=== PATIENT | male | born 1945 | race Caucasian/White ===

== ENCOUNTER 2018-03-14 14:03 | Observation (INO) | payer MEDICARE, OTHER ==
[~2018-03-14] VITALS: Ht 172.7 cm; Wt 113.4 kg
[~2018-03-14 14:03] MED LIST: ATENOLOL50 MG PO; LISINOPRIL10 MG PO; XARELTO20 MG PO
[2018-03-14] MEDS ORDERED: FUROSEMIDE40 MG PO (14:24)
[2018-03-14] MEDS ORDERED: POTASSIUM CHLO20 ME1 PO (14:24)
[2018-03-14] MEDS ORDERED: ATORVASTATIN CA20 MG PO (14:24)
[2018-03-14] MEDS ORDERED: ELIQUIS PO (14:24)
[2018-03-14] MEDS ORDERED: ASPIR 8181 MG PO (14:24)
[2018-03-14] MEDS ORDERED: ASPIRIN 81 MG CHEW TAB PO ONE ×2 (14:30→16:45)
[2018-03-14 14:49] LABS: BASOPHILS # (AUTO) 0.1 (0.0-0.1); BASOPHILS % 0.4 % (0.0-1.0); EOSINOPHILS % 0.2 % (0.0-6.0); HEMATOCRIT 44.4 % (38.2-49.6); HEMOGLOBIN 15.3 g/dL (14.0-18.0); LYMPHOCYTES # (AUTO) 1.4 (1.0-3.2); LYMPHOCYTES % 10.2 % (18.0-39.1); MEAN CORPUSCULAR HEMOGLOBIN 31.7 pg (28-32); MEAN CORPUSCULAR HGB CONC 34.5 g/dL (31-35); MEAN CORPUSCULAR VOLUME 91.9 fL (81-99); MONOCYTES # (AUTO) 1.4 (0.2-0.8); MONOCYTES % 10.2 % (4.4-11.3); NEUTROPHILS # (AUTO) 10.8 (2.1-6.9); NEUTROPHILS % 78.7 % (38.7-80.0); PLATELET COUNT 195 x10e3/uL (140-360); RED BLOOD COUNT 4.83 x10e6/uL (4.3-5.7); RED CELL DISTRIBUTION WIDTH 12.3 % (11.7-14.4)
--- NOTE | 2018-03-14 14:52 | Diagnostic Imaging Report ---
EXAM: XR CHEST 1 VIEW DATE: 03/14/2018 2:22 PM INDICATION: Lightheaded COMPARISON: None FINDINGS: Lines and Tubes: None Heart and Mediastinum: No acute cardiomediastinal findings. Lungs and Pleura: Minimal opacities in the lung bases statistically represent atelectasis, however, infectious process could have a similar appearance. Bones and Soft Tissues: No acute findings. IMPRESSION: 1. Probable atelectasis. Signed by: Dr. Binh Nathan MD on 03/14/2018 2:48 PM
[2018-03-14 14:58] LABS: INR 1.4; PARTIAL THROMBOPLASTIN TIME 33.7 seconds (23.8-35.5); PROTHROMBIN TIME 16.1 seconds (11.9-14.5)
[2018-03-14 15:08] LABS: ALBUMIN 3.6 g/dL (3.5-5.0); ALBUMIN/GLOBULIN RATIO 1.1 (0.8-2.0); CALCIUM 9.2 mg/dL (8.4-10.2); CREATININE, SERUM 1.33 mg/dL (0.72-1.25); MAGNESIUM 1.8 MG/DL (1.3-2.1)
--- NOTE | 2018-03-14 15:22 | Diagnostic Imaging Report ---
Exam: Head CT without contrast History: Dizziness Comparison studies: None Technique: Axial images were obtained from the skull base to the vertex. Coronal and sagittal images reconstructed from the axial data. Radiation dose: Total DLP: 921 mGy*cm. Estimated effective dose: DLP x 0.015 Intravenous contrast: None Findings: Scalp: No abnormalities. Bones: No fractures, blastic or lytic lesions. Brain sulci: Appropriate for age. Ventricles: Normal in size and configuration. No hydrocephalus. Extra-axial spaces: No masses, no fluid collection. Parenchyma: No mass, acute hemorrhage or acute or chronic cortical vascular insults. A few scattered hypodensities in the supratentorial white matter are nonspecific but most compatible with chronic microvascular ischemic changes. Sellar/suprasellar region: No abnormalities. Craniocervical junction: Patent foramen magnum. No Chiari one malformation. Incidental findings: Atherosclerotic calcifications in the carotid siphons. IMPRESSION: 1. No acute intracranial abnormalities. 2. Mild chronic microvascular ischemic changes. Signed by: Dr. Ortiz Christensen M.D. on 03/14/2018 3:19 PM
[2018-03-14 15:28] LABS: CREATINE KINASE MB 1.2 ng/mL (0-5.0); THYROID STIMULATING HORMONE 0.468 uIU/mL (0.350-4.940)
[2018-03-14 15:55] LABS: BILIRUBIN,URINE NEGATIVE (NEGATIVE); CLARITY,URINE CLEAR (CLEAR); COLOR,URINE YELLOW (YELLOW); KETONES,URINE NEGATIVE (NEGATIVE); LEUKOCYTE ESTERASE ,URINE NEGATIVE (NEGATIVE); NITRITE,URINE NEGATIVE (NEGATIVE); PROTEIN,URINE DIPSTICK NEGATIVE (NEGATIVE); URINE UROBILINOGEN 0.2 mg/dL (0.2 - 1)
[2018-03-14 16:06] LABS: BACTERIA,URINE RARE /HPF; EPITHELIAL CELLS,URINE RARE /LPF; RBC,URINE 0-5 /HPF (0-5); WBC,URINE (MAN) 0-5 /HPF (0-5)
[2018-03-14 16:07] LABS: MUCUS,URINE MODERATE (RARE); TRANSITIONAL EPI CELLS,URINE RARE
[2018-03-14] MEDS ORDERED: SODIUM CHLORIDE 0.9% 1000ML 1,000 ML IV STA (16:24)
[2018-03-14] MEDS ORDERED: SODIUM CHLORIDE 0.9% 1000ML 1,000 ML IV SCH (16:31)
[2018-03-14] MEDS ORDERED: DIATRIZOATE MEGL/DIATRIZOA SOD 30 ML BTL PO ONE (16:39)
[2018-03-14] MEDS ORDERED: ONDANSETRON HCL INJ 2 MG/ML VIAL IV PRN (16:45)
[2018-03-14] MEDS ORDERED: SODIUM CHLORIDE 0.9% 50ML 0 ML ONE (17:48)
[2018-03-14] MEDS ORDERED: IOPAMIDOL 370 MG/ML 200 ML INFUS..BTL INJ ONE ×2 (17:48→20:13)
--- NOTE | 2018-03-14 18:28 | Diagnostic Imaging Report ---
ADDENDUM #1 Addendum: Indeterminate right adrenal lesion. Nonemergent outpatient adrenal protocol CT or MRI recommended. Signed by: Dr. Binh Nathan MD on 03/14/2018 6:29 PM ORIGINAL REPORT EXAM: CT Abdomen and Pelvis WITH contrast INDICATION: COMPARISON: None. TECHNIQUE: Abdomen and Pelvis was scanned utilizing a multidetector helical scanner after administration of IV contrast. Coronal and sagittal reformations were obtained. IV CONTRAST: 100 mL Isovue-370 contrast COMPLICATIONS: None RADIATION DOSE: Total DLP:891 mGy*cm Estimated effective dose: (DLP x 0.015 x size factor) mSv CTDIvol has been reviewed. It is below the limits set by the Radiation Protocol Committee (RPC). FINDINGS: Abdomen: Lung Bases: Atelectasis. Solid Organs: Small indeterminate right adrenal nodule with Hounsfield units 49. Simple cyst left kidney. Hypodensity spleen likely cyst. Otherwise, solid organs unremarkable. Upper GI Tract: Gastric decompression limits evaluation. Duodenal diverticulum noted. No small bowel obstructive changes. Vascularity: Mild aortic vascular calcifications with no aneurysm. Lymph Nodes: No suspicious adenopathy. Other: None. Pelvis: Bladder: Unremarkable. Other: None Colon: Colonic diverticulosis present most notably sigmoid colon and rectum with moderate stranding about the rectum, particularly on the left. There is a moderate sized diverticulum arising from the left aspect of the rectum. No distinct drainable fluid collection identified. Bones: Degenerative changes. IMPRESSION: 1. Moderate diverticulosis distal sigmoid colon/rectum. Signed by: Dr. Binh Nathan MD on 03/14/2018 6:25 PM
[2018-03-14 19:19] VITALS: BP 100/78
[2018-03-14] MEDS ORDERED: SODIUM CHLORIDE 0.9% 50ML 50 ML ONE (20:13)
[2018-03-15] MEDS ORDERED: LEVOFLOXACIN 750MG/D5W 150ML 150 ML IV SCH (09:00)
== END 2018-03-14 19:54 | disposition left against medical advice (07) ==
LOC: ER 14:03 → ERHOLD 16:34 → UNDOADMOB 16:39 → ERHOLD 16:39
PROVIDERS: ADMIT Internal Medicine; ATTEND Internal Medicine
DX: J18.9 Pneumonia, unspecified organism (principal); I95.9 Hypotension, unspecified; R53.1 Weakness; I10 Essential (primary) hypertension; R19.7 Diarrhea, unspecified; I48.91 Unspecified atrial fibrillation; E78.5 Hyperlipidemia, unspecified; Z86.718 Personal history of other venous thrombosis and embolism
CPT/HCPCS: 36415; 70450; 71045; 74177; 80053; 81001; 82550; 82553; 83735; 83880; 84443; 84484; 85025; 85610; 85730; 87086; 93005; 99284; G0378; J2405; J7030; Q9967

== ENCOUNTER 2018-11-26 10:56 | Observation (INO) | payer MEDICARE, OTHER ==
[2018-11-23 10:31] LABS: BASOPHILS % 0.5 % (0.0-1.0); EOSINOPHILS # (AUTO) 0.2 (0.0-0.4); HEMATOCRIT 45.4 % (38.2-49.6); HEMOGLOBIN 15.8 g/dL (14.0-18.0); LYMPHOCYTES # (AUTO) 2.1 (1.0-3.2); LYMPHOCYTES % 28.8 % (18.0-39.1); MEAN CORPUSCULAR HEMOGLOBIN 31.9 pg (28-32); MEAN CORPUSCULAR HGB CONC 34.8 g/dL (31-35); MEAN CORPUSCULAR VOLUME 91.5 fL (81-99); MONOCYTES # (AUTO) 0.9 (0.2-0.8); MONOCYTES % 11.7 % (4.4-11.3); NEUTROPHILS # (AUTO) 4.1 (2.1-6.9); NEUTROPHILS % 56.7 % (38.7-80.0); PLATELET COUNT 196 x10e3/uL (140-360); RED BLOOD COUNT 4.96 x10e6/uL (4.3-5.7)
[2018-11-23 10:54] LABS: ALBUMIN 3.9 g/dL (3.5-5.0); ALBUMIN/GLOBULIN RATIO 1.2 (0.8-2.0); ANION GAP 11.2 mmol/L (8-16); CALCIUM 9.7 mg/dL (8.4-10.2); CREATININE, SERUM 1.3 mg/dL (0.72-1.25); POTASSIUM 4.2 mmol/L (3.5-5.1)
[2018-11-26] VITALS (16 sets, daily range): BP systolic 118–177; BP diastolic 42–102
[~2018-11-26] VITALS: Ht 175.3 cm; Wt 115.7 kg
[~2018-11-26 10:56] MED LIST changes: +ASPIR 8181 MG PO; +ATORVASTATIN CA20 MG PO; +CLOPIDOGREL75 MG PO; +ELIQUIS PO; +FUROSEMIDE40 MG PO; +POTASSIUM CHLO20 ME1 PO
[2018-11-26] MEDS ORDERED: DIPHENHYDRAMINE HCL 25 MG CAP ONE (11:15)
[2018-11-26] MEDS ORDERED: ALPRAZOLAM 0.5 MG TAB ONE (11:15)
--- NOTE | 2018-11-26 11:39 | NUR ---
Patient ambulated to ACU bay 20. Patient awake,alert,and orientedx3. Respirations even and unlabored on room air. Patient prepped in usual fashion for peripheral angiogram, Pedal pulses marked bilaterally. Left pedal access area prepped in usual fashion.
[2018-11-26] MEDS ORDERED: MIDAZOLAM HCL 2 MG/2 ML VIAL ONE ×2 (11:57→13:09)
[2018-11-26] MEDS ORDERED: HEPARIN SOD (PORCINE) 1000 UNIT/ML 30ML ONE (11:57)
[2018-11-26] MEDS ORDERED: LIDOCAINE HCL 2% LOCAL 20 ML VIAL ONE (11:57)
[2018-11-26] MEDS ORDERED: FENTANYL CITRATE/PF 100MCG/2 ML INJ ONE (11:57)
[2018-11-26] MEDS ORDERED: IOPAMIDOL 300MG/ML 100 ML INFUS..BTL IV ONE (11:58)
[2018-11-26] MEDS ORDERED: SODIUM CHLORIDE 0.9% 1000ML 1,000 ML ONE ×4 (11:58→18:43)
[2018-11-26] MEDS ORDERED: HEPARIN SOD/SOD CHLORIDE 2,000 ML ONE (11:58)
[2018-11-26] MEDS ORDERED: HEPARIN SOD/SOD CHLORIDE 1,000 ML ONE (13:15)
[2018-11-26] MEDS ORDERED: VERAPAMIL HCL 2.5 MG/ML 2 ML VIAL ONE (13:19)
[2018-11-26] MEDS ORDERED: NITROGLYCERIN/D5W 200 MCG/ML 250 ML ONE (13:20)
--- NOTE | 2018-11-26 13:50 | NUR ---
1350 Received pt in room #9 Identifierx2 Report form Arnaud Leach Peripheral CSI fix wiht balloon. Left has 6fr and right has 7fr sheath in place. No gross signs pain,pallor,pressure or dysrhythmia.Iv infusing well at 75cchr w/o s/s infiltration. via dial a flow.To infuse full liter.Back to baseline orientation. Resp regular 100% sat on room air.Abdomen soft and non tender Denies necessity to defecate or urinate. Bilateral pulses present weak Pd/Dp.Left foot discoloration present however, pt has history as well as atrial fib asymptomatic.Bed ordered (Tele Obsv.) and High School Math Tutor notified.Liliana LEACH. Discharge plans for return December 03 for procedure at [facility] and copies of POC. No gross sign of pain or pressure. ACT due at 1420pm. Denies CP or SOB. kyle/marcel
--- NOTE | 2018-11-26 16:20 | NUR ---
1620pm Act 176 kelly in one hour for sheath pull No gross issues pain pallor pressure or dysrhythmia. ds/rn
[2018-11-26] MEDS ORDERED: MORPHINE SULFATE INJ 4 MG/ML INJ 1ML ONE (16:32)
--- NOTE | 2018-11-26 16:45 | NUR ---
1645 c/o low back pain remains flat for extended period time.Medicated 4mg ivp MOrphine slowly with adequate pain relief to lower back area Family at bedside Remains NPO till sheath pull,No gross issues with pain pallor or pressure. ds/rn
--- NOTE | 2018-11-26 17:20 | NUR ---
17[address] Brar received one time order for muscle relaxant ,unable to give till sheath pull x2 completed Monitor remains atrial fib. No gross issues pain pallor or pressure. In formed senior cytotechnologist sheath ready to be removed. Obtained Atropine for standby at bedside. kyle/marcel
--- NOTE | 2018-11-26 17:36 | NUR ---
1736 sonography technologist Cecilio at bedside Vs stable with atrial fib. NO gross signs of pain,pallor,pressure or dythrhtmia. Catheter pulled and pressure applied per laborer aquatic life Cecilio Technologist. Pt states "going out" Bolused 200NS,Hr 33, Atropine 0.5 ivp via left NS line. Pt Hr continues to drop to 27 Additional 0.5 Atropine Ivp Rapid called and ED DR DR Garcia arrived. O2 per NC at 4lnc Pt regained consciousness.Dr Gonzalez rd lab technician examined pt. House Supv. Liliana at bedside and rapid response team left bedside.Notified Dr Brar per text and phone and was made aware of event Stasis to Rt groin achieved in 30min,18:05pm. 1840pm José sonography technologist at bedside Atropine on standby 2nd sheath to left groin pulled and stasis achieve at 1930 Bilateral Brinda patches in place. Pulses present at bedside and no gross issues with pain pallor pressure or dysthrthmia however baseline rthym remains in atrial fib.Denies any ill feelings,CP or SOb.Iv clamped and site dry and intact with 900cc NS in bag. Phone floor to give report ds/rn
[2018-11-26] MEDS ORDERED: ATROPINE SULFATE 0.1 MG/ML 10ML SYR ONE ×2 (17:41→18:41)
[2018-11-26] MEDS ORDERED: METHOCARBAMOL 750 MG TAB PO ONE (17:45)
--- NOTE | 2018-11-26 20:00 | NUR ---
2000 Pt with no gross sign pain pallor pressure Both sheath removed Flat till 6am Left iv clamped and patent 1 liter infused. Bilateral Brinda Patch dressing intact. Triston femoral pulses present with slight mottle to left leg.Dp/PD Rt 2+/2+ left 1+/1+ Chronic. Needs further fx to leg in one week Discharge home car paper filled out and copies given to and placed on chart. Pt received Morphine 4mg iv at 1645pm, 200NS and 1mg Atropine with vagal response and during 1st sheath pull. Robaxin 750 po at 2000pm pt tolerating h20 intake. Report to BDDY Rn aware pt to be flat till 6am. Vs and ekg stable at this time.Transfer per stretcher zolmali and Rn escort. ds/rn
[2018-11-26] MEDS ORDERED: MORPHINE SULFATE 2 MG/ML SYR 1ML IV PRN (22:15)
[2018-11-27] VITALS: BP 112/67
[2018-11-27 00:07] VITALS: BP 120/88
[2018-11-27] MEDS ORDERED: MORPHINE SULFATE INJ 4 MG/ML INJ 1ML IV PRN (02:48)
[2018-11-27 04:00] VITALS: BP 122/72
[2018-11-27 06:42] LABS: BASOPHILS % 0.5 % (0.0-1.0); EOSINOPHILS # (AUTO) 0.1 (0.0-0.4); EOSINOPHILS % 0.8 % (0.0-6.0); HEMATOCRIT 42.5 % (38.2-49.6); HEMOGLOBIN 14.1 g/dL (14.0-18.0); LYMPHOCYTES # (AUTO) 1.7 (1.0-3.2); LYMPHOCYTES % 23.4 % (18.0-39.1); MEAN CORPUSCULAR HEMOGLOBIN 31.3 pg (28-32); MEAN CORPUSCULAR HGB CONC 33.2 g/dL (31-35); MEAN CORPUSCULAR VOLUME 94.2 fL (81-99); MONOCYTES # (AUTO) 0.7 (0.2-0.8); MONOCYTES % 9.8 % (4.4-11.3); NEUTROPHILS # (AUTO) 4.9 (2.1-6.9); NEUTROPHILS % 65.1 % (38.7-80.0); PLATELET COUNT 141 x10e3/uL (140-360); RED BLOOD COUNT 4.51 x10e6/uL (4.3-5.7); RED CELL DISTRIBUTION WIDTH 13.2 % (11.7-14.4)
--- NOTE | 2018-11-27 06:50 | NUR ---
rounded with shift foreman, patient aware of change and in no distress. groin sites bandages in tact and sites are soft. moderate amount of drainage to left groin, but nurse states there has been no change in the site since the patient was received. call zavala within reach and bed in lowest position
[2018-11-27 06:55] LABS: ANION GAP 11.2 mmol/L (8-16); CALCIUM 8.9 mg/dL (8.4-10.2); CARBON DIOXIDE 23 mmol/L (22-29); CHLORIDE 109 mmol/L (98-107); CREATININE, SERUM 1.04 mg/dL (0.72-1.25); EST GLOMERULAR FILTRATION RATE > 60 ML/MIN (60-); GLUCOSE 99 mg/dL (74-118); POTASSIUM 4.2 mmol/L (3.5-5.1); SODIUM 139 mmol/L (136-145)
[2018-11-27 07:20] VITALS: BP 138/82
[2018-11-27 07:23] LABS: BLOOD UREA NITROGEN 18 mg/dL (7-26); BUN/CREATININE RATIO 17 (6-25)
[2018-11-27 07:53] VITALS: BP 104/54
[2018-11-27 07:56] VITALS: BP 138/82
--- NOTE | 2018-11-27 08:50 | NUR ---
CASE MANAGEMENT INITIAL ASSESSMENT Logistics Lead to bedside to discuss plan of care with patient/family. CM/SW role and care transitions discussed. Anticipated discharge plan discussed along with duration of care. CM/SW discussed patients right to make decisions in care. CM/SW work hours given. Patient lives: WITH Admit/Transfer: SCHEDULED PROCEDURE Hospital/ER visits since last admit:YES POA/Emergency contact: KOJO [phone] Current/Previous Home Health: NONE PCP/Follow-up Care: DR ALLRED; CARDIOLOGY IS DR. KANDI MOREIRA Current/Previous DME: NO Medications (referring to index hospitalization or the first time you were in the hospital) a. Were changes made in your medications when you were in the hospital on [date of index hospitalization]? Yes XNo Not sure Explain: Note: If no or not sure, please skip to question d b. Did you understand the changes? Yes No Explain: c. Were you able to obtain your new medications right away? Yes No n/a SNF only Explain: d. Were you able to take your medications like the doctor wanted you to? X Yes No Explain: e. Did the hospital give you an accurate, easy to understand list of medications when you left? X Yes No n/a SNF only Explain: Scale of 1-10 how comfortable does patient feel with disease management in outpatient setting: Other Services: NONE Employment Status: RETIRED Areas of Concerns: NONE Referral Needs: NONE Education Needs:EDUCATED ON BURGER LETTER IMM/BURGER given and signed (if applicable): BURGER Goal for discharge:TO RETURN HOME CM/SW left business card at the bedside with contact information. Name and number was also written on the patients whiteboard. Patient verbalized understanding of discussion. CM will follow-up with ongoing discharge and transition of care needs.
[2018-11-27] MEDS ORDERED: FUROSEMIDE 40 MG TAB PO SCH (09:00)
[2018-11-27] MEDS ORDERED: LISINOPRIL 10 MG TAB PO SCH (09:00)
[2018-11-27] MEDS ORDERED: ATENOLOL 50 MG TAB PO SCH (09:00)
[2018-11-27] MEDS ORDERED: ASPIRIN 81 MG CHEW TAB PO SCH (09:00)
--- NOTE | 2018-11-27 09:40 | NUR ---
patient alert and oriented. discharge instructions given to patient and , both verbalized understanding. IV discontinued, catheter in tact and small dressing applied. patient to be wheeled from the unit to personal auto for to drive home.
[2018-11-27] MEDS ORDERED: ATORVASTATIN 20 MG TAB PO SCH (21:00)
[2018-11-27] MEDS ORDERED: CLOPIDOGREL BISULFATE 75 MG TAB PO SCH (21:00)
--- NOTE | 2018-11-28 01:49 | Operative Report ---
DATE OF PROCEDURE: 11/26/2018 SURGEON: Sudeep Brar MD PROCEDURE: Cardiac optical laboratory mechanic procedure. INDICATIONS: Peripheral arterial disease, claudication of the left lower extremity. PROCEDURES PERFORMED: 1. Abdominal aorta catheter placement, abdominal aortogram, / catheter placement from the right femoral artery to the left superficial femoral artery. 2. Antegrade access into the left femoral artery with atherectomy and balloon angioplasty of the left popliteal anterior tibial arteries. COMPLICATIONS: None. RECOMMENDATIONS: Intervention of the right anterior tibial artery and the right pedal access. DESCRIPTION OF PROCEDURE: Access was obtained in the right femoral artery. Abdominal aortogram demonstrates minimal disease of the abdominal aorta. Iliac bifurcations were almost vertical on the inability to cross from the right to the left side. Antegrade access obtained. The left leg stent was widely patent, however, anterior tibial artery had 99% stenosis. Tibioperoneal trunk and popliteal artery 90% stenosis. The popliteal artery is completely occluded posterior tibial artery is completely occluded collaterals from the peroneal artery. A decision was made to intervene on the both popliteal and peroneal artery. The patient received intravenous heparin. The lesion was crossed using a Glidewire. Orbital atherectomy was performed of the popliteal artery as well as the peroneal artery. Large amounts of visible thrombus with manual aspiration thrombectomy was needed. Drug coated balloon angioplasty of the popliteal and peroneal artery performed with a 4 mm balloon. Excellent left foot. No complication. Sheath was secured in place, removed under manual pressure. The patient was observed in the hospital overnight. Sudeep Brar MD KSB/MODL /[id number]
== END 2018-11-27 09:42 | disposition home or self-care (01) ==
LOC: CATH LAB 10:56 → CATH LAB V 16:54 → IMCU 20:15
PROVIDERS: ADMIT Internal Medicine Interventional Cardiology; ATTEND Internal Medicine Interventional Cardiology
DX: I73.9 Peripheral vascular disease, unspecified (principal); Z01.812 Encounter for preprocedural laboratory examination; I10 Essential (primary) hypertension; I48.1 Persistent atrial fibrillation; I72.4 Aneurysm of artery of lower extremity; Z79.899 Other long term (current) drug therapy; I82.493 Acute embolism and thrombosis of other specified deep vein of lower extremity, bilateral; T82.868D Thrombosis due to vascular prosthetic devices, implants and grafts, subsequent encounter
CPT/HCPCS: 36415 ×2; 37186; 37225; 37229; 75625; 75710; 80048; 80053; 85025 ×2; C1724; C1725; C1766 ×2; C1769 ×3; C1887; G0378 ×2; J1644; J2001; J2250; J2270 ×2; J7030; Q9967; 36247

== ENCOUNTER → 2018-12-03 | Day surgery (SDC) | payer MEDICARE, OTHER ==
[2018-12-01 11:31] LABS: BASOPHILS # (AUTO) 0.1 (0.0-0.1); BASOPHILS % 0.8 % (0.0-1.0); EOSINOPHILS # (AUTO) 0.2 (0.0-0.4); EOSINOPHILS % 3.2 % (0.0-6.0); HEMOGLOBIN 14.3 g/dL (14.0-18.0); LYMPHOCYTES # (AUTO) 1.6 (1.0-3.2); LYMPHOCYTES % 25.2 % (18.0-39.1); MEAN CORPUSCULAR HEMOGLOBIN 31.6 pg (28-32); MEAN CORPUSCULAR VOLUME 92.7 fL (81-99); MONOCYTES # (AUTO) 0.8 (0.2-0.8); MONOCYTES % 13.6 % (4.4-11.3); NEUTROPHILS # (AUTO) 3.5 (2.1-6.9); NEUTROPHILS % 56.7 % (38.7-80.0); PLATELET COUNT 164 x10e3/uL (140-360); RED BLOOD COUNT 4.53 x10e6/uL (4.3-5.7); RED CELL DISTRIBUTION WIDTH 12.7 % (11.7-14.4)
[2018-12-01 11:46] LABS: ALBUMIN 3.8 g/dL (3.5-5.0); ALBUMIN/GLOBULIN RATIO 1.2 (0.8-2.0); ANION GAP 10.8 mmol/L (8-16); CALCIUM 9.8 mg/dL (8.4-10.2); CREATININE, SERUM 1.23 mg/dL (0.72-1.25); POTASSIUM 4.8 mmol/L (3.5-5.1)
[~2018-12-03] VITALS: Ht 175.3 cm; Wt 115.7 kg
[2018-12-03] VITALS (14 sets, daily range): BP systolic 96–132; BP diastolic 57–90
[~2018-12-03] MED LIST changes: +ALPRAZOLAM 0.5 MG TAB ONE; +DIPHENHYDRAMINE HCL 25 MG CAP ONE; +FENTANYL CITRATE/PF 100MCG/2 ML INJ ONE; +HEPARIN SOD/SOD CHLORIDE 2,000 ML ONE; +IOPAMIDOL 300MG/ML 100 ML INFUS..BTL IV ONE; +LIDOCAINE HCL 2% LOCAL 20 ML VIAL ONE; +MIDAZOLAM HCL 2 MG/2 ML VIAL ONE; +SODIUM CHLORIDE 0.9% 1000ML 1,000 ML ONE; +VERAPAMIL HCL 2.5 MG/ML 2 ML VIAL ONE
--- NOTE | 2018-12-03 18:30 | NUR ---
1830 Received pt to laborer operator rec RM # [address] Brar. Report Arnaud GARCIA. TR band approach. 13cc in balloon left foot. Back to baseline orientation. Family at bedside. Reviewed f/o care and PC and copies of dc papers with family. Respirations regular. 98% sat on room air. Abdomen soft and non tender Denies necessity to defecate Iv infusing well w/o s/s infiltration at 100cchr. Tr band titration ok to start at 1900pm.Bilateral ppx4 with doppler. Dp/PT. Tolerating po intake. Will dc when Tr band removed. No gross issues pain, pallor,pressure,or dysrhythmia. 1900 -2cc from Tr Band ,no oozing or hematoma,toes blanching, less 3seconds, positive 10cc tr band 1915 -2cc form Tr Band ,no oozing or hematoma ,toes blanching ,less 3seconds, positive 8cc tr band 1930 -2cc from Tr Band ,no oozing or hematoma,toes blanching,less 3seconds ,positive 6cc tr band 1945-2cc form Tr band ,no oozing or hematoma.toes blanching,less 3seconds,positive 3cc hold ooze return 3cc positive 6cc 2014 resume TR band titration. -2cc slight ooze return air to balloon,positive 6cc ,toes blanching less 3second 2044 resume Tr band titration,no oozing or hematoma, toes manpreet well positive 4cc in balloon 2100 -2cc Tr band titration,no oozing or hematoma,toes manpreet well positive 2cc in balloon 2115 -2cc Tr band titration completed no gross signs of pain pallor,pressure or dysrhythmia. left foot with sterile 2x2 Tegaderm and Coban .Post procedural teaching completed with family and pt understanding assist with dressing. Tolerated po intake and discharged with RN escort to car per w/c family auto transport driver Family has copies of dc instructions. stable vs denies c/o CP or SOB. Ekg stable, ds/rn
--- NOTE | 2018-12-03 21:30 | NUR ---
2130 Tr titration to left with Coban dressing and sterile 2x2 with Tegaderm. Assist with dressing Able to tolerate po intake Back to baseline orientation Dc home with family test car driver and per Rn escort to car. Has copies of DC papers aware of importance of f/o care. No gross signs of pain,pallor,pressure or Dysrhythmia. ds/rn
--- NOTE | 2018-12-03 23:10 | Operative Report ---
DATE OF PROCEDURE: 12/03/2018 SURGEON: Sudeep Brar MD INDICATIONS: Peripheral arterial disease, claudication, critical limb ischemia of the left lower extremity. PROCEDURES PERFORMED: 1. Third order catheter placement in unilateral left leg angiogram. 2. Atherectomy and drug-coated balloon angioplasty of the left anterior tibial artery. 3. Secondary thrombectomy of the left popliteal artery. 4. Atherectomy and angioplasty of left popliteal artery. COMPLICATIONS: None. RECOMMENDATIONS: Triple anticoagulant therapy for life. DESCRIPTION OF PROCEDURE: Access obtained in the right lead in the left dorsalis pedis artery using ultrasound guidance. A 5-Tamazight sheath was placed. The patient received 10,000 units of intravenous heparin for anticoagulation. 90% stenosis of the proximal left anterior tibial artery, 80% stenosis in the distal left popliteal artery was noted. The intervention was deemed necessary. The lesion was crossed using a Glidewire, which was exchanged to a Viper wire. Orbital atherectomy thrombus necessitating aspiration, manual thrombectomy, atherectomy of the left popliteal artery is also performed. Angioplasty of the left anterior tibial artery with a 4 mm balloon, angioplasty of left popliteal artery. A 5 mm drug-coated balloon was performed. Excellent end result with two vessel runoff to the left foot. No complications. The left foot sheath was removed. TR bands were applied. The patient was observed in the hospital, subsequently discharged home same day with instructions for followup. Sudeep Brar MD KSB/MODL /[id number]
== END | disposition home or self-care (01) ==
LOC: CATH LAB 13:53
PROVIDERS: ATTEND Internal Medicine Interventional Cardiology
DX: I73.9 Peripheral vascular disease, unspecified (principal); Z01.812 Encounter for preprocedural laboratory examination; I48.91 Unspecified atrial fibrillation; I10 Essential (primary) hypertension; E29.1 Testicular hypofunction; Z82.49 Family history of ischemic heart disease and other diseases of the circulatory system; I72.4 Aneurysm of artery of lower extremity; Z79.899 Other long term (current) drug therapy; I48.1 Persistent atrial fibrillation; T82.868D Thrombosis due to vascular prosthetic devices, implants and grafts, subsequent encounter; I82.493 Acute embolism and thrombosis of other specified deep vein of lower extremity, bilateral
CPT/HCPCS: 36415; 37186; 37225; 37229; 75625; 75710; 80053; 85025; C1724; C1725 ×2; C1769 ×3; C1887; J2001; J2250; J7030; Q9967; 36247; 37224

== ENCOUNTER → 2018-12-28 | Outpatient (CLI) | payer MEDICARE, OTHER ==
[~2018-12-28] MED LIST changes: -ALPRAZOLAM 0.5 MG TAB ONE; -DIPHENHYDRAMINE HCL 25 MG CAP ONE; -FENTANYL CITRATE/PF 100MCG/2 ML INJ ONE; -HEPARIN SOD/SOD CHLORIDE 2,000 ML ONE; -IOPAMIDOL 300MG/ML 100 ML INFUS..BTL IV ONE; +IOPAMIDOL 370 MG/ML 200 ML INFUS..BTL INJ ONE; -LIDOCAINE HCL 2% LOCAL 20 ML VIAL ONE; -MIDAZOLAM HCL 2 MG/2 ML VIAL ONE; +SODIUM CHLORIDE 0.9% 100 ML 100 ML ONE; -SODIUM CHLORIDE 0.9% 1000ML 1,000 ML ONE; +SODIUM CHLORIDE 0.9% 50ML 0 ML ONE; -VERAPAMIL HCL 2.5 MG/ML 2 ML VIAL ONE
[2018-12-28 12:13] LABS: ANION GAP 12.4 mmol/L (8-16); BLOOD UREA NITROGEN 17 mg/dL (7-26); BUN/CREATININE RATIO 15 (6-25); CALCIUM 9.3 mg/dL (8.4-10.2); CARBON DIOXIDE 22 mmol/L (22-29); CHLORIDE 109 mmol/L (98-107); CREATININE, SERUM 1.16 mg/dL (0.72-1.25); EST GLOMERULAR FILTRATION RATE > 60 ML/MIN (60-); GLUCOSE 101 mg/dL (74-118); POTASSIUM 4.4 mmol/L (3.5-5.1); SODIUM 139 mmol/L (136-145)
--- NOTE | 2018-12-28 13:52 | Diagnostic Imaging Report ---
EXAMINATION: CT angiography of the abdomen, pelvis, and lower extremities TECHNIQUE: Spiral CT images of the abdomen and pelvis and lower extremities were performed from the lung bases to the lesser trochanters after the intravenous administration of 100 cc Isovue-370. Coronal and sagittal reformatted images were obtained. For optimization of anatomic definition, volume rendered 3-D reconstructions were generated on a stand-alone workstation under the direct supervision of the interpreting physician. COMPARISON: CT abdomen and pelvis with contrast 03/14/2018, images from left lower extremity angiogram and intervention CLINICAL HISTORY:Abdominal aortic aneurysm, popliteal aneurysm, right leg pain DISCUSSION: ABDOMEN/PELVIS: Vasculature: The abdominal aorta is nonaneurysmal. Celiac axis, SMA, single bilateral renal artery, and ROB origins are widely patent. Mild calcified and noncalcified atherosclerotic plaque. The iliac arteries are tortuous but otherwise widely patent, without significant inflow stenosis. Femoral-popliteal segments: Left: The common femoral artery is widely patent. Femoral bifurcation is widely patent. Profunda femoris artery and muscular branches are patent. Superficial femoral artery is patent. Patent stent graft excludes a fusiform aneurysm of the left popliteal artery which measures 2.9 cm in maximum diameter. No definite evidence of endoleak, though no precontrast examination was performed. Right: The common femoral artery is patent. Femoral bifurcation is patent. Profunda femoris artery and proximal muscular branches are patent. Superficial femoral artery is patent. Popliteal artery is patent, though markedly tortuous, with a peripherally thrombosed fusiform aneurysm of the above knee popliteal artery, measuring 3.7 cm in greatest dimension (series 6 image 27). The below-knee popliteal artery is patent. Runoff: Left: The anterior tibial artery is patent proximally and is visualized to its continuation as the dorsalis pedis artery. An early take off from the popliteal artery at the level of the knee joint is noted. The tibioperoneal trunk is patent. The peroneal artery is patent to its termination at the ankle joint. The posterior tibial artery occludes at its mid segment, with reconstitution at the level of the ankle. Right: The anterior tibial artery is patent. Early takeoff from the popliteal artery at the level of the knee joint. The anterior tibial artery is visualized to its continuation as the dorsalis pedis artery. The tibioperoneal trunk is patent. The peroneal artery is visualized to its termination at the ankle joint. The posterior tibial artery is visualized to its continuation as the lateral plantar artery. LOWER THORAX:Unremarkable. HEPATOBILIARY: No focal hepatic lesions. No intra-or extrahepatic biliary ductal dilation. Gallbladder has been removed. SPLEEN: Subcentimeter hypoattenuating splenic lesion, unchanged. PANCREAS: No focal masses or ductal dilatation. ADRENALS: Unchanged indeterminate right adrenal nodule. KIDNEYS/URETERS: Exophytic left lower pole renal cyst, unchanged. No hydronephrosis or calculi. PELVIC ORGANS/BLADDER: Urinary bladder is incompletely distended but otherwise unremarkable. PERITONEUM/RETROPERITONEUM: No free air or fluid. LYMPH NODES: No pelvic sidewall, retroperitoneal, or mesenteric lymphadenopathy. VESSELS: As above. GI TRACT: Innumerable sigmoid diverticula without wall thickening or inflammation. Stomach is collapsed with prominence of the rugal folds. Normal appendix. No small bowel dilatation to suggest obstruction. BONES AND SOFT TISSUE: No bony destructive lesions. Intramuscular lipoma anterior compartment right thigh. Otherwise no focal soft tissue abnormalities. IMPRESSION: No abdominal aortic aneurysm. 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 No significant iliac inflow or femoral-popliteal stenoses. Two-vessel runoff to the left foot supplied by the anterior tibial and peroneal arteries. Three-vessel runoff to the right foot. Incidental bilateral high takeoff of the anterior tibial arteries. Nonvascular findings include large bowel diverticulosis without findings of diverticulitis, and an indeterminate right adrenal nodule for which definitive characterization by CT or MRI of the abdomen with and without contrast (adrenal mass protocol) is again suggested. Signed by: Dr. Ortiz Biswas M.D. on 12/28/2018 1:49 PM
== END ==
LOC: CT 10:38
PROVIDERS: ATTEND Internal Medicine Interventional Cardiology
DX: I71.4 Abdominal aortic aneurysm, without rupture (principal); M79.604 Pain in right leg; K57.30 Diverticulosis of large intestine without perforation or abscess without bleeding
CPT/HCPCS: 36415; 75635; 80048; Q9967

== ENCOUNTER → 2019-07-08 | Day surgery (SDC) | payer MEDICARE, OTHER ==
[2019-07-06 14:38] LABS: BASOPHILS # (AUTO) 0.1 (0.0-0.1); BASOPHILS % 0.9 % (0.0-1.0); EOSINOPHILS # (AUTO) 0.2 (0.0-0.4); EOSINOPHILS % 2.7 % (0.0-6.0); HEMATOCRIT 46.6 % (38.2-49.6); HEMOGLOBIN 15.8 g/dL (14.0-18.0); LYMPHOCYTES # (AUTO) 1.7 (1.0-3.2); LYMPHOCYTES % 29.7 % (18.0-39.1); MEAN CORPUSCULAR HEMOGLOBIN 31.2 pg (28-32); MEAN CORPUSCULAR HGB CONC 33.9 g/dL (31-35); MEAN CORPUSCULAR VOLUME 92.1 fL (81-99); MONOCYTES # (AUTO) 0.8 (0.2-0.8); MONOCYTES % 12.8 % (4.4-11.3); NEUTROPHILS # (AUTO) 3.1 (2.1-6.9); NEUTROPHILS % 53.7 % (38.7-80.0); PLATELET COUNT 180 x10e3/uL (140-360); RED BLOOD COUNT 5.06 x10e6/uL (4.3-5.7); RED CELL DISTRIBUTION WIDTH 12.6 % (11.7-14.4)
[2019-07-06 14:54] LABS: ALBUMIN 3.8 g/dL (3.5-5.0); ALBUMIN/GLOBULIN RATIO 1.4 (0.8-2.0); ANION GAP 14.3 mmol/L (8-16); CALCIUM 9.1 mg/dL (8.4-10.2); CREATININE, SERUM 1.45 mg/dL (0.72-1.25); POTASSIUM 4.3 mmol/L (3.5-5.1)
[2019-07-08] VITALS (10 sets, daily range): BP systolic 88–132; BP diastolic 56–105
[~2019-07-08] VITALS: Ht 172.7 cm; Wt 117.9 kg
[~2019-07-08] MED LIST changes: +ALPRAZOLAM 0.5 MG TAB ONE; +DIPHENHYDRAMINE HCL 25 MG CAP ONE; +ELIQUIS5 MG PO; +FENTANYL CITRATE/PF 100MCG/2 ML INJ ONE; +HEPARIN SOD (PORCINE) 1000 UNIT/ML 30ML ONE; +HEPARIN SOD/SOD CHLORIDE 2,000 ML ONE; +IOPAMIDOL 300MG/ML 100 ML INFUS..BTL IV ONE; -IOPAMIDOL 370 MG/ML 200 ML INFUS..BTL INJ ONE; +LIDOCAINE HCL 2% LOCAL 20 ML VIAL ONE; +MIDAZOLAM HCL 2 MG/2 ML VIAL ONE; +NITROGLYCERIN/D5W 200 MCG/ML 250 ML ONE; -SODIUM CHLORIDE 0.9% 100 ML 100 ML ONE; +SODIUM CHLORIDE 0.9% 1000ML 1,000 ML ONE; +SODIUM CHLORIDE 0.9% 500ML 500 ML ONE; -SODIUM CHLORIDE 0.9% 50ML 0 ML ONE; +VERAPAMIL HCL 2.5 MG/ML 2 ML VIAL ONE
--- NOTE | 2019-07-08 08:45 | NUR ---
0845t in Rm#9, completed procedure.Fix Dr Brar Alert oriented and appropriate, PERRLA, respirations even and unlabored to room air. Pulses x4 extremities equal and faint. Pedal pulses PT/DP rt Pt/DP present Left Dp/PT 1+ palpable. Cap fill brisk < 3 sec. bilateral feet warm to touch Ok to decrease TR band at 1100am and dc home Pt stable vs in atrial fib. Skin warm and dry integrity appears intact in general. IV 100cchr Ns via left hand,presents healthy w/o s/s of infiltration or complaint. Abdomen soft and supple. pt offered toileting, denies need to urinate or defecate. Personal affects with patient. Family at bedside. Pt and family verbalizes understanding of POC, bed low and locked, side rails up x2 and call light at side. ds/rn
--- NOTE | 2019-07-08 11:00 | NUR ---
1100 left foot Compression removal: Initial Cuff volume 10 cc 1100 -5cc Removed No hematoma/bleeding noted with normal neurovascular function. 1115 -5cc Removed No hematoma/ bleeding noted with normal neurovascular function. Air removal completed. Stasis achieved sterile 2x2,Tegaderm, Coban dressing No hematoma, bleeding noted with normal neurovascular function. RADIAL Compression removal: Initial Cuff volume 15 cc 1100 -5cc Removed No hematoma/bleeding noted with normal neurovascular function. 1115 -5cc Removed No hematoma/ bleeding noted with normal neurovascular function. 1130 -5cc Removed No hematoma/bleeding noted with normal neurovascular function. cc Removed No hematoma/ bleeding noted with normal neurovascular function. Air removal completed. Stasis achieved sterile 2x2,Tegaderm, Coban dressing No hematoma, bleeding noted with normal neurovascular function. Wrist splint in place. Pt instructed on POC. Ds/Rn
--- NOTE | 2019-07-08 11:45 | NUR ---
1145a Pt meets DC criteria.Left Pedal and Rt radial sites assessed for s/s of complication and presecence of hematoma. Skin warm, dry, no discolor, and pulses present. IV removed from let arm. Distal tip appears intact. VS WNL. Pt denies pain, sob, or need at this time. Family at bedside. Review of discharge paperwork and follow up instructions. verbalized understanding. Pt to wheelchair and transported to front of hospital. Transferred to private vehicle under own strength w/o incident with DC paperwork in hand.ds/rn
--- NOTE | 2019-07-09 19:39 | Operative Report ---
DATE OF PROCEDURE: 07/08/2019 SURGEON: Sudeep Brar MD INDICATIONS: Peripheral arterial disease, critical limb ischemia of the left lower extremity. PROCEDURES PERFORMED: 1. Selective catheter placement from the right radial artery to the left femoral artery with unilateral extremity angiogram. 2. Additional third-order catheter placement from the right radial artery to the left anterior tibial artery. 3. Primary thrombectomy using Angiojet of the left anterior tibial artery. 4. Balloon angioplasty of the left anterior tibial artery. 5. Ultrasound-guided access into the right dorsalis pedis artery. COMPLICATIONS: None. RECOMMENDATIONS: Vascular Surgery consultation with continued triple anticoagulant therapy. DESCRIPTION OF PROCEDURE: Access obtained in the right radial artery. Sheath was advanced to the left femoral artery. Access obtained using ultrasound guidance in the right dorsalis pedis artery. A 6-Romanian sheath was placed. The patient was administered heparin for anticoagulation. Patent stent in the left femoral artery. Tibioperoneal trunk was occluded. Proximal anterior tibial artery 50% stenosis. Mid left anterior tibial artery was occluded with thrombus. Angiojet thrombectomy primarily of the right anterior tibial artery was performed following which a single 3 x 220 mm balloon was used to perform angioplasty via the pedal approach. Single-vessel runoff to the right foot was noted. Right wrist TR band, left foot TR band was applied. The patient was discharged home the same day. Sudeep Brar MD KSB/MODL /[id number]
== END | disposition home or self-care (01) ==
LOC: CATH LAB 06:08
PROVIDERS: ATTEND Internal Medicine Interventional Cardiology
DX: I70.202 Unspecified atherosclerosis of native arteries of extremities, left leg (principal); I74.3 Embolism and thrombosis of arteries of the lower extremities; Z95.820 Peripheral vascular angioplasty status with implants and grafts; I48.19 Other persistent atrial fibrillation; I10 Essential (primary) hypertension; Z01.812 Encounter for preprocedural laboratory examination; Z79.02 Long term (current) use of antithrombotics/antiplatelets; Z68.39 Body mass index [BMI] 39.0-39.9, adult; Z82.49 Family history of ischemic heart disease and other diseases of the circulatory system
CPT/HCPCS: 36415; 37184; 37228; 75710; 76937; 80053; 85025; C1725; C1769 ×3; C1887 ×2; J1644; J2001; J2250; J3010; J7030; J7040; Q9967; 36247; 99152; 99153; C1757

== ENCOUNTER → 2019-08-23 | Day surgery (SDC) | payer MEDICARE, OTHER ==
[2019-08-19 10:04] LABS: BASOPHILS # (AUTO) 0.1 (0.0-0.1); BASOPHILS % 1.1 % (0.0-1.0); EOSINOPHILS # (AUTO) 0.2 (0.0-0.4); EOSINOPHILS % 2.4 % (0.0-6.0); HEMATOCRIT 44.2 % (38.2-49.6); HEMOGLOBIN 15.5 g/dL (14.0-18.0); LYMPHOCYTES # (AUTO) 1.7 (1.0-3.2); LYMPHOCYTES % 26.1 % (18.0-39.1); MEAN CORPUSCULAR HEMOGLOBIN 32.2 pg (28-32); MEAN CORPUSCULAR HGB CONC 35.1 g/dL (31-35); MEAN CORPUSCULAR VOLUME 91.7 fL (81-99); MONOCYTES # (AUTO) 0.6 (0.2-0.8); MONOCYTES % 9.5 % (4.4-11.3); NEUTROPHILS # (AUTO) 3.8 (2.1-6.9); NEUTROPHILS % 60.4 % (38.7-80.0); PLATELET COUNT 194 x10e3/uL (140-360); RED BLOOD COUNT 4.82 x10e6/uL (4.3-5.7); RED CELL DISTRIBUTION WIDTH 12.4 % (11.7-14.4)
[2019-08-19 10:23] LABS: ALBUMIN 3.7 g/dL (3.5-5.0); ALBUMIN/GLOBULIN RATIO 1.4 (0.8-2.0); ANION GAP 15.2 mmol/L (8-16); CREATININE, SERUM 1.35 mg/dL (0.72-1.25); POTASSIUM 4.2 mmol/L (3.5-5.1)
[~2019-08-23] VITALS: Ht 175.3 cm; Wt 117.9 kg
[2019-08-23] VITALS (7 sets, daily range): BP systolic 96–121; BP diastolic 46–81
[~2019-08-23] MED LIST changes: -SODIUM CHLORIDE 0.9% 500ML 500 ML ONE
--- NOTE | 2019-08-25 02:56 | Operative Report ---
DATE OF PROCEDURE: 08/23/2019 SURGEON: Sudeep Brar MD CARDIAC [facility]LL[facility] PROCEDURE NOTE INDICATION: Peripheral arterial disease. PROCEDURE PERFORMED: Left extremity angiogram with third-order catheter placement from the right radial artery and the left femoral artery. COMPLICATIONS: None. RECOMMENDATIONS: Left femoral posterior tibial bypass. DESCRIPTION OF PROCEDURE: Access obtained in the right radial artery. Sheath was extended into the left iliac artery, the stent was patent, 50% popliteal stenosis, 100% occlusion of the anterior tibial, posterior tibial, and peroneal vessels were noted. Collaterals filled the posterior tibial for the dominant vessel to the foot. No intervention deemed necessary. Right wrist TR band applied. The patient discharged home same day. Sudeep Brar MD [facility] /[id number]
== END | disposition home or self-care (01) ==
LOC: CATH LAB 05:45
PROVIDERS: ATTEND Internal Medicine Interventional Cardiology
DX: I73.9 Peripheral vascular disease, unspecified (principal); I77.1 Stricture of artery; I10 Essential (primary) hypertension; I48.19 Other persistent atrial fibrillation; Z01.812 Encounter for preprocedural laboratory examination; Z79.02 Long term (current) use of antithrombotics/antiplatelets; Z79.82 Long term (current) use of aspirin; Z86.718 Personal history of other venous thrombosis and embolism; Z82.49 Family history of ischemic heart disease and other diseases of the circulatory system
CPT/HCPCS: 36247; 36415; 75625; 75710; 76937; 80053; 85025; 99152; C1769; C1887; J1644; J2001; J2250; J3010; J7030; Q9967

== ENCOUNTER → 2021-05-03 | Outpatient (CLI) | payer MEDICARE, OTHER ==
[~2021-05-03] MED LIST changes: -ALPRAZOLAM 0.5 MG TAB ONE; -DIPHENHYDRAMINE HCL 25 MG CAP ONE; -FENTANYL CITRATE/PF 100MCG/2 ML INJ ONE; -HEPARIN SOD (PORCINE) 1000 UNIT/ML 30ML ONE; -HEPARIN SOD/SOD CHLORIDE 2,000 ML ONE; -IOPAMIDOL 300MG/ML 100 ML INFUS..BTL IV ONE; +IOPAMIDOL 370 MG/ML 200 ML INFUS..BTL INJ ONE; -LIDOCAINE HCL 2% LOCAL 20 ML VIAL ONE; -MIDAZOLAM HCL 2 MG/2 ML VIAL ONE; -NITROGLYCERIN/D5W 200 MCG/ML 250 ML ONE; -SODIUM CHLORIDE 0.9% 1000ML 1,000 ML ONE; +SODIUM CHLORIDE 0.9% 50ML 50 ML ONE; -VERAPAMIL HCL 2.5 MG/ML 2 ML VIAL ONE
[2021-05-03 17:04] LABS: CREATININE, SERUM 1.31 mg/dL (0.72-1.25)
== END ==
LOC: CT 16:17
PROVIDERS: ATTEND Internal Medicine
DX: K57.32 Diverticulitis of large intestine without perforation or abscess without bleeding (principal)
CPT/HCPCS: 36415; 74177; 82565; 84520; Q9967